=== PATIENT | male | born 1960 | race Caucasian/White ===

== ENCOUNTER → 2016-06-02 | Outpatient (CLI) | payer OTHER ==
--- NOTE | 2016-06-02 16:46 | MR ---
EXAMINATION TYPE: MR brain wo/w con DATE OF EXAM: 06/02/2016 4:33 PM COMPARISON: None at this institution. HISTORY: Seizures, hx brain tumor removed 2001 TECHNIQUE: Multiplanar, multisequence images of the brain and brainstem is performed without and with IV contras t, utilizing 20 mL intravenous MultiHance . FINDINGS: Diffusion weighted images area of increased signal on diffusion-weighted images without low signal on ADC mapping that correlates with area isointense to CSF near the left frontal temporal par ietal junction laterally near axial image 19. Suspect focal area of encephalomalacia related to prior surgery, I cannot explain increased signal on diffusion-weighted images at this level. There is no w orrisome extra-axial fluid collection or significant white matter signal abnormality. Occasional foc us of T2 hyperintensity seen scattered throughout the white matter bilaterally. Approximately 5-8 sca ttered lesions are present. The ventricular system and cisternal spaces are normal in size and appear ance. The brain volume is age appropriate. Midline structures demonstrate normal morphology. The craniocervical junction appears within normal limits. Post contrast images demonstrate no abnormal enhancement with particular attention to the le ft frontal temporal parietal junction at area of increased signal on diffusion-weighted images. There is artifact from high left frontal parietal craniotomy near axial image 27 noted. The dural venous s inuses appear patent. The visualized sinuses are clear and the globes are intact. IMPRESSION: Abnormal area near left frontal temporal parietal junction is felt to reflect location of prior tumor resection. Correlation with old outside CT or MRI would be beneficial to confirm. Reason for increased signal on diffusion-weighted images is of uncertain certainty near this level. No dimi nished ADC to suggest acute infarct. No suspicious enhancement or edema to suggest subacute infarct i s felt present. Postsurgical change superior to this is noted.
== END | disposition home or self-care (01) ==
LOC: RADMRIMAIN 15:34
PROVIDERS: ATTEND Family Medicine
DX: R93.0 Abnormal findings on diagnostic imaging of skull and head, not elsewhere classified (principal); G40.909 Epilepsy, unspecified, not intractable, without status epilepticus; Z98.890 Other specified postprocedural states
CPT/HCPCS: 70553; A9577

== ENCOUNTER → 2020-09-24 | Outpatient (CLI) | payer OTHER ==
[2020-09-24 20:18] LABS: African American GFR (CKD) 95.7 (60.0-200.0); Albumin 4.4 g/dL (3.80-4.90); Albumin/Globulin Ratio 1.52 (1.60-3.17); Anion Gap 9.7 mmol/L (4.00-12.00); Calcium 9.5 mg/dL (8.7-10.3); Carbon Dioxide 26.3 mmol/L (21.6-31.8); Chol/HDL Ratio 6.59; Globulin 2.9 g/dL (1.6-3.3); LDL Cholesterol,Calculated 113.6 mg/dL (0.0-131.0); Non-African American GFR(CKD) 82.6 (60.0-200.0); Potassium 4.5 mmol/L (3.5-5.5); Total Bilirubin 0.7 mg/dL (0.2-1.2); Total Protein 7.3 g/dL (6.2-8.2); VLDL Calculation 65.4 mg/dL (5.00-40.00)
== END | disposition home or self-care (01) ==
LOC: EDSEX → LABWHC1 13:39 → MERGE 13:39
PROVIDERS: ATTEND Internal Medicine Interventional Cardiology
DX: E78.2 Mixed hyperlipidemia (principal)
CPT/HCPCS: 36415; 80053; 80061

== ENCOUNTER 2020-10-02 05:50 | Day surgery (SDC) | payer OTHER ==
[2020-09-27 16:50] VITALS: BMI 36.6
[2020-10-02] MEDS ORDERED: HEPARIN SODIUM,PORCINE 2,500 UNIT in SODIUM CHLORIDE 0.9% 250 ML IRRIGATION PRN (05:58)
[2020-10-02] MEDS ORDERED: HEPARIN SODIUM,PORCINE 10,000 UNIT in SODIUM CHLORIDE 0.9% 1,000 ML IRRIGATION PRN (05:58)
[2020-10-02] MEDS ORDERED: ALPRAZolam 0.5 MG TAB PO PRN (05:58)
[2020-10-02] MEDS ORDERED: NITROGLYCERIN SL TABS 0.4 MG TAB SUBLINGUAL PRN ×2 (05:58→09:15)
[2020-10-02] MEDS ORDERED: SODIUM CHLORIDE 0.9% 1,000 ML in EMPTY BAG 1 BAG IV ONE (05:58)
[2020-10-02] MEDS ORDERED: ALPRAZolam 0.25 MG TAB PO PRN (05:58)
[2020-10-02] MEDS ORDERED: ASPIRIN 325 MG TAB PO STA (05:58)
[2020-10-02 06:32] LABS: Glucose,Whole Blood 132 mg/dL (75-99)
[2020-10-02 06:35] LABS: Basophils # (A) 0.1 k/uL (0-0.2); Basophils % (A) 1 %; Eosinophils # (A) 0.2 k/uL (0-0.7); Eosinophils % (A) 2 %; HCT 50.4 % (39.0-53.0); HGB 16.8 gm/dL (13.0-17.5); Lymphocytes # (A) 3.9 k/uL (1.0-4.8); Lymphocytes % (A) 41 %; MCH 31.6 pg (25.0-35.0); MCHC 33.4 g/dL (31.0-37.0); MCV 94.7 fL (80.0-100.0); Mean Platelet Volume 7.4; Monocytes # (A) 0.7 k/uL (0-1.0); Monocytes % (A) 8 %; Neutrophils # (A) 4.2 k/uL (1.3-7.7); Neutrophils % (A) 45 %; Platelet Count 265 k/uL (150-450); RBC 5.32 m/uL (4.30-5.90); WBC 9.3 k/uL (3.8-10.6)
[2020-10-02] MEDS ORDERED: LIDOCAINE 1% INJ 10MG/ML (20 ML MDV) ONE (07:12)
[2020-10-02] MEDS ORDERED: fentaNYL (PF) 50 MCG/ML 2 ML AMP ONE (07:12)
[2020-10-02] MEDS ORDERED: HEPARIN SODIUM 1,000 UN/ML (10ML VL) ONE (07:12)
[2020-10-02] MEDS ORDERED: VERAPAMIL 2.5 MG/ML 2 ML AMP ONE (07:12)
[2020-10-02] MEDS ORDERED: fentaNYL (PF) 50 MCG/ML 2 ML AMP IV ONE (07:55)
[2020-10-02] MEDS ORDERED: MIDAZOLAM 2 MG/2 ML VIAL IV ONE (08:01)
[2020-10-02] MEDS ORDERED: LIDOCAINE 1% INJ 10MG/ML (20 ML MDV) SQ ONE (08:03)
[2020-10-02] MEDS ORDERED: VERAPAMIL SYRINGE (5 MG/10 ML) INTRAARTER ONE (08:08)
[2020-10-02] MEDS ORDERED: HEPARIN SODIUM 1,000 UN/ML (10ML VL) IV ONE (08:11)
[2020-10-02] MEDS ORDERED: CLOPIDOGREL 75 MG TAB ONE (08:17)
[2020-10-02] MEDS ORDERED: CLOPIDOGREL 75 MG TAB PO ONE (08:21)
[2020-10-02] MEDS ORDERED: IOPAMIDOL-370 125ML BTL INJ ONE (08:32)
[2020-10-02] MEDS ORDERED: NITROGLYCERIN 1000MCG/10ML SYRINGE INTRACORON ONE (08:39)
[2020-10-02] MEDS ORDERED: IOPAMIDOL-370 100ML BTL INJ ONE (09:00)
[2020-10-02] MEDS ORDERED: MAG HYDROX/AL HYDROX/SIMETH 30 ML CUP PO PRN (09:15)
[2020-10-02] MEDS ORDERED: SODIUM CHLORIDE 0.9% 1,000 ML IV SCH (09:15)
[2020-10-02] MEDS ORDERED: ATROPINE SULFATE 0.1 MG/ML 10ML SYRINGE IV PRN (09:15)
[2020-10-02] MEDS ORDERED: ZOLPIDEM 5 MG TAB PO PRN (09:15)
[2020-10-02] MEDS ORDERED: RX INFO: IV CONTRAST WAS GIVEN 1 EACH MISC MISCELLANE PRN (09:15)
--- NOTE | 2020-10-02 09:30 | CC ---
CARDIAC CATHETERIZATION REPORT Mr. Mulligan is a 59-year-old male with known history of diabetes, hypertension, chronic tobacco use, who has been complaining of progressive symptoms of exertional chest discomfort and dyspnea on exertion. In view of that, recommendation was made regarding cardiac catheterization. The procedure as well as the risks and the complications were discussed with the patient who is in full understanding and agreement. PROCEDURE DETAILS: Patient was brought to the laborer fryer farm in a fasting semisedated state, after receiving fentanyl and Benadryl and achieving moderate conscious sedated state. Using Xylocaine anesthesia and Seldinger technique, a 6-Chinese sheath was introduced in the right radial artery. Selective right and left coronary angiography were performed using 5- Chinese 3.5 bend right and left Christa catheter. Multiple views of the coronary arteries including hemiaxial views were obtained. The right Christa catheter was used to cross the aortic valve. Images of the coronary arteries were obtained. Left ventricle end-diastolic pressure was calculated. Following that, catheter was removed, images were reviewed. FINDINGS: LEFT MAIN: This is a short size vessel, bifurcating into left circumflex, left anterior descending artery, left main coronary artery has no evidence of high-grade stenosis. LEFT ANTERIOR DESCENDING ARTERY: This is a large-sized vessel reaching to the apex, giving rise to a large 1st diagonal branch. The diagonal branch has a 99% stenosis. The LAD proximally has 20% to 30% plaque. After the takeoff of the first septal psych nurse, there is a tubular lesion of about 50% to 60%. The rest of the vessel has no high-grade stenosis. LEFT CIRCUMFLEX: This is a nondominant vessel, large in caliber giving rise to 2 obtuse marginal branches. The first one is very proximal. The left circumflex has mild intimal disease of 20% to 30% without any evidence of high-grade stenosis. RIGHT CORONARY ARTERY: This is a large dominant vessel bifurcating distally into PDA and posterolateral segment and branches. The proximal segment of the RCA has about 60 to 70% plaque. The mid segment at the takeoff of the acute marginal, has a complex lesion of about 99% stenosis. The rest of the vessel has no high-grade stenosis. LEFT VENTRICULOGRAM: Left ventriculogram was not performed. HEMODYNAMICS: There was no gradient across the aortic valve. The left ventricular end-diastolic pressure was 14-18 mmHg. CONCLUSION: 1. Critical stenosis involving the mid right coronary artery and the proximal right coronary artery. 2. Significant stenosis in the first diagonal branch and moderate significant disease in the mid LAD. 3. Mild disease in the left circumflex. RECOMMENDATIONS: In view of findings and anatomy, I recommend proceeding with angioplasty and stenting of the right coronary artery. The procedure as well as the risks and the complications were discussed with the patient who is in full understanding and agreement. MMODL / IJN: [id number] /
--- NOTE | 2020-10-02 09:34 | PTCA ---
PERCUTANEOUSTRANS CORORONARY ANGIOGRAPHY Mr. Mulligan is a 59-year-old male with history of diabetes, chronic tobacco use, hypertension, who presented with symptoms of progressive chest discomfort, underwent cardiac catheterization and was found to have critical stenosis involving the mid right coronary artery and the proximal right coronary artery. In view of that, recommendation was made regarding angioplasty and stenting. The procedure, its risks and complications were discussed with the patient who is in full understanding and agreement. PROCEDURE: A 6-Kazakh FR4 guiding catheter was introduced into the system. After cannulating the ostium of the right coronary artery, a 0.014 balanced medium weight J-wire was advanced and positioned in the acute marginal branch. Subsequently another 0.014 balanced medium weight J-wire with the help of a straight Super cross microcatheter was used to cross the critical stenosis in the mid right coronary artery and position in the PDA. Subsequently, the microcatheter was removed and a 2.5 x 12 mm NC Trek balloon was advanced and multiple inflations at a maximum of 8 atmospheres were done. Following that, the balloon was removed and a 3.5 x 33 mm Xience Jose point was advanced, deployed and was dilated at 16 atmospheres. Following that, the balloon was removed and a 4.0 x 15 mm Xience Jose Point stent was advanced in the proximal lesion and deployed and dilated at 16 atmospheres. Following that, the balloon was removed and a 3.75 x 15 mm NC Trek balloon was advanced and multiple inflations in the distal stent were done at maximum of 10 atmospheres. After the last inflation, after appropriate wait, the balloon and the guidewire were withdrawn back in the guiding catheter. Images were obtained and repeated. Those images reveal stable successful stenting. At that point, the guiding catheter, the balloon and the guidewire were removed. The sheath was removed. Hemostasis was obtained with deployment of a TR band. There was no immediate complication. Patient is returned to his room in stable condition. Of note, the patient had received 8000 units of intravenous heparin as well as intra-arterial verapamil. He received a loading dose of clopidogrel. He had no significant chest discomfort with the inflations. RESULTS: 1. Successful stenting of the mid right coronary artery with reduction of stenosis from 99% to 0%. 2. Successful stenting of the proximal right coronary artery with reduction of stenosis from 70% to 0%. RECOMMENDATIONS: Patient will be continued on aspirin, Plavix, beta wen, JHOAN inhibitor and statin. The importance of dual antiplatelet treatment were discussed with the patient and his family and they are in full understanding and agreement. He will be admitted at a later time to undergo staged angioplasty and stenting of his diagonal branch and reevaluate his LAD. Duration of sedation: 60 minutes. GIORGI / ABELN: [id number] /
[2020-10-02 11:44] LABS: Glucose,Whole Blood 148 mg/dL (75-99)
[2020-10-02 17:42] LABS: Glucose,Whole Blood 136 mg/dL (75-99)
[2020-10-02 20:56] LABS: Glucose,Whole Blood 97 mg/dL (75-99)
[2020-10-02] MEDS ORDERED: ATORVASTATIN 80 MG TAB PO SCH (21:00)
[2020-10-03 01:56] VITALS: RESP 16
[2020-10-03 06:21] LABS: African American GFR (CKD) >90 (>60 ml/min/1.73 sqM); Anion Gap 7 mmol/L; Blood Urea Nitrogen 17 mg/dL (9-20); Calcium 9.2 mg/dL (8.4-10.2); Carbon Dioxide 26 mmol/L (22-30); Chloride 104 mmol/L (98-107); Glucose 104 mg/dL (74-99); Non-African American GFR(CKD) 89 (>60 ml/min/1.73 sqM); Potassium 4.1 mmol/L (3.5-5.1); Sodium 137 mmol/L (137-145)
[2020-10-03 07:05] LABS: Glucose,Whole Blood 115 mg/dL (75-99)
[2020-10-03 07:35] VITALS: BP 160/96; PULSE 64; TEMP 98.2
[2020-10-03] MEDS ORDERED: ISOSORBIDE MONONITRATE ER 30 MG TAB.ER.24H PO SCH (09:00)
[2020-10-03] MEDS ORDERED: ASPIRIN 81 MG PO SCH (09:00)
[2020-10-03] MEDS ORDERED: lisinopriL 10 MG TAB PO SCH (09:00)
[2020-10-03] MEDS ORDERED: CITALOPRAM HYDROBROMIDE 20 MG TAB PO SCH (09:00)
[2020-10-03] MEDS ORDERED: CLOPIDOGREL 75 MG TAB PO SCH (09:00)
--- NOTE | 2020-10-03 10:57 | PN ---
PROGRESS NOTE Mr. Mulligan is a 59-year-old male known history of hypertension, diabetes mellitus, chronic tobacco use, who presented with symptoms of chest discomfort, underwent cardiac catheterization and was found to have significant obstructive disease involving the right coronary artery as well as the diagonal branch. He underwent stenting of the right coronary artery yesterday. He is doing well this morning. His breathing is stable. He denies any chest pain. No dizziness. No palpitation. No nausea. He continued on aspirin once a day, Lipitor 80 mg daily, citalopram, Plavix 75 mg daily, isosorbide mononitrate 30 mg daily, lisinopril 10 mg daily. PHYSICAL EXAMINATION: Blood pressure running in the 130s to 160s with a heart rate 60. LUNGS: Clear. HEART: Regular rhythm S1, S2. No S3. No rub. ABDOMEN: Soft nontender. EXTREMITIES: No edema, right radial pulse intact. LAB DATA: Lab data revealed BUN and creatinine 17 and 0.94, potassium 4.1. His EKG revealed no acute changes. IMPRESSION: 1. Status post stenting of the right coronary artery. 2. Obstructive disease in the diagonal branch. 3. Hypertension. 4. Hyperlipidemia. 5. Diabetes mellitus. RECOMMENDATION: Patient should be able to be discharged home today. He will resume his metformin in 48 hours. He will be evaluated next week and if stable, he will be re- admitted to the hospital in 2 weeks to undergo percutaneous revascularization of his diagonal branch. MMODL / ABELN: [id number] /
== END 2020-10-03 09:29 | disposition home or self-care (01) ==
LOC: EDSEX → CATHCVL 05:50 → MERGE 07:30 → 6NMEDSUR 11:04 → CATHCVL 10-03 09:29
PROVIDERS: ATTEND Internal Medicine Interventional Cardiology
DX: I25.10 Atherosclerotic heart disease of native coronary artery without angina pectoris (principal); E11.9 Type 2 diabetes mellitus without complications; E78.5 Hyperlipidemia, unspecified; I10 Essential (primary) hypertension; F17.200 Nicotine dependence, unspecified, uncomplicated
CPT/HCPCS: 93458; 85025; J2250; J2001; J3010; J1644; Q9967 ×2; 80048

== ENCOUNTER 2020-10-23 06:31 | Day surgery (SDC) | payer OTHER ==
[~2020-10-23 06:31] MED LIST: ALPRAZolam 0.25 MG TAB PO PRN; ALPRAZolam 0.5 MG TAB PO PRN; NITROGLYCERIN SL TABS 0.4 MG TAB SUBLINGUAL PRN; SODIUM CHLORIDE 0.9% 1,000 ML in EMPTY BAG 1 BAG IV ONE
[2020-10-23] MEDS ORDERED: SODIUM CHLORIDE 0.9% 1,000 ML IV ONE (06:55)
[2020-10-23] MEDS ORDERED: ASPIRIN 325 MG TAB PO ONE (07:00)
[2020-10-23] MEDS ORDERED: HEPARIN SODIUM,PORCINE 2,500 UNIT in SODIUM CHLORIDE 0.9% 250 ML IRRIGATION PRN (07:00)
[2020-10-23] MEDS ORDERED: ATORVASTATIN 80 MG TAB PO ONE (07:00)
[2020-10-23] MEDS ORDERED: HEPARIN SODIUM,PORCINE 10,000 UNIT in SODIUM CHLORIDE 0.9% 1,000 ML IRRIGATION PRN (07:00)
[2020-10-23 07:09] LABS: Glucose,Whole Blood 177 mg/dL (75-99)
[2020-10-23] MEDS ORDERED: LIDOCAINE 1% INJ 10MG/ML (20 ML MDV) ONE (07:21)
[2020-10-23] MEDS ORDERED: VERAPAMIL 2.5 MG/ML 2 ML AMP ONE (07:21)
[2020-10-23] MEDS ORDERED: HEPARIN SODIUM 1,000 UN/ML (10ML VL) ONE (07:30)
[2020-10-23] MEDS ORDERED: fentaNYL (PF) 50 MCG/ML 2 ML AMP ONE (07:30)
[2020-10-23] MEDS ORDERED: fentaNYL (PF) 50 MCG/ML 2 ML AMP IV ONE (07:43)
[2020-10-23] MEDS ORDERED: LIDOCAINE 1% INJ 10MG/ML (20 ML MDV) SQ ONE (07:44)
[2020-10-23] MEDS ORDERED: MIDAZOLAM 2 MG/2 ML VIAL IV ONE (07:45)
[2020-10-23] MEDS ORDERED: VERAPAMIL SYRINGE (5 MG/10 ML) INTRAARTER ONE (07:49)
[2020-10-23] MEDS: HEPARIN SODIUM 1,000 UN/ML (10ML VL) IV ONE ×2 (07:54→08:52)
[2020-10-23] MEDS ORDERED: IOPAMIDOL-370 125ML BTL INJ ONE (08:12)
[2020-10-23] MEDS ORDERED: IOPAMIDOL-370 100ML BTL INJ ONE (08:45)
[2020-10-23] MEDS ORDERED: RX INFO: IV CONTRAST WAS GIVEN 1 EACH MISC MISCELLANE PRN (09:02)
[2020-10-23] MEDS ORDERED: ATROPINE SULFATE 0.1 MG/ML 10ML SYRINGE IV PRN (09:02)
[2020-10-23] MEDS ORDERED: NITROGLYCERIN SL TABS 0.4 MG TAB SUBLINGUAL PRN (09:02)
[2020-10-23] MEDS ORDERED: ZOLPIDEM 5 MG TAB PO PRN (09:02)
[2020-10-23] MEDS ORDERED: MAG HYDROX/AL HYDROX/SIMETH 30 ML CUP PO PRN (09:02)
[2020-10-23] MEDS ORDERED: SODIUM CHLORIDE 0.9% 1,000 ML IV SCH (09:15)
--- NOTE | 2020-10-23 10:23 | CC ---
CARDIAC CATHETERIZATION REPORT Mr. Mulligan is a 59-year-old male who has been complaining of episodes of chest discomfort, underwent cardiac catheterization earlier this month and was found to have critical stenosis in the right coronary artery, the diagonal branch and borderline significant lesion in the mid LAD. He underwent stenting of the right coronary artery and has been complaining of some symptoms of discomfort and dyspnea. He was brought in today to further evaluate his left coronary anatomy. The procedure as well as its risks and complications were discussed with the patient, who was in full understanding and agreement. PROCEDURE DESCRIPTION: Patient was brought to the slab off mill tender in a fasting, semi-sedated state. After receiving fentanyl and Benadryl and achieving a moderate conscious sedated state, using Xylocaine anesthesia and Seldinger technique, a 6-Albanian sheath was introduced in the left radial artery. A 6-Albanian 4 bend right Christa catheter was introduced into the system. Images of the right coronary were performed. Following that, a 6-Albanian EBU 3.75 guiding catheter was introduced into the system. After cannulating the left main, a Doppler flow wire was introduced into the LAD and positioned distally. IFR was measured in the LAD at 0.82. At that point, a BMW J-wire was advanced and positioned in the distal diagonal branch. Subsequently a 2.5 x 12 mm NC Trek balloon was advanced, and inflations in the LAD and diagonal branch were performed. Following that, the balloon was removed and a 3.0 x 18 mm Xience Sk[place]oint stent was advanced into the diagonal branch, deployed and post-dilated at 16 atmospheres. Following that the balloon was removed and a 3.0 x 28 mm Xience Skypoint stent was advanced into the LAD, deployed and post-dilated at 16 atmospheres. After removing the balloon, a 3.25 x 8 mm NC Trek balloon was advanced, and one inflation in the proximal segment of the stent at 12 atmospheres was done. After the last inflation, after appropriate wait, the balloon and the guidewire were withdrawn back into the guiding catheter. Images were obtained and repeated. Those images revealed stable successful stenting. At that point, the guiding catheter and the guidewire were removed. The sheath was removed. Hemostasis was obtained with deployment of a TR band. There was no immediate complication. The patient was returned to his room in stable condition. Of note, the patient received a total of 9000 units of intravenous heparin. His ACT was followed and he received an oral loading dose of clopidogrel. FINDINGS: RIGHT CORONARY ARTERY: This is a dominant vessel that has no evidence of in-stent restenosis. LEFT MAIN: This is a short-sized vessel with no evidence of high-grade stenosis. LEFT CIRCUMFLEX: This is a nondominant vessel giving rise to a large first obtuse marginal branch. The left circumflex obtuse marginal branch has a 50% plaque proximally. The rest of the vessel has no high-grade stenosis. Successful stenting of the first diagonal branch with reduction of stenosis from 95% to 0%. Positive IFR of the mid LAD at 0.82 and successful stenting of that vessel with reduction of stenosis from 60-70% to 0%. RECOMMENDATIONS: Patient will be continued on aspirin, Plavix, beta blockers, JHOAN inhibitor and statin. The importance of dual antiplatelet treatment was discussed with the patient and his family, and they are in full understanding and agreement. Duration of sedation was 62 minutes. MMREBEKAH / ABELN: [id number] /
[2020-10-23 12:20] LABS: Glucose,Whole Blood 180 mg/dL (75-99)
[2020-10-23] MEDS: INSULIN ASPART (NovoLOG) 100 UNIT/ML VIAL SQ SCH ×3 (13:54→20:52)
[2020-10-23 14:46] VITALS: BMI 38.4
[2020-10-23] MEDS ORDERED: INSULIN ASPART (NovoLOG) 100 UNIT/ML VIAL SQ SCH (17:30)
[2020-10-23 17:50] LABS: Glucose,Whole Blood 187 mg/dL (75-99)
[2020-10-23 20:06] VITALS: PULSE 67
[2020-10-23 20:09] VITALS: RESP 18
[2020-10-23 20:51] LABS: Glucose,Whole Blood 118 mg/dL (75-99)
[2020-10-23] MEDS ORDERED: ATORVASTATIN 80 MG TAB PO SCH (21:00)
[2020-10-23] MEDS: lisinopriL 10 MG TAB PO SCH (21:15)
[2020-10-24 02:37] VITALS: BP 97/52; TEMP 98.4
[2020-10-24 05:31] LABS: African American GFR (CKD) >90 (>60 ml/min/1.73 sqM); Anion Gap 7 mmol/L; Blood Urea Nitrogen 16 mg/dL (9-20); Calcium 9.1 mg/dL (8.4-10.2); Carbon Dioxide 28 mmol/L (22-30); Chloride 101 mmol/L (98-107); Glucose 134 mg/dL (74-99); Non-African American GFR(CKD) 89 (>60 ml/min/1.73 sqM); Potassium 3.9 mmol/L (3.5-5.1); Sodium 136 mmol/L (137-145)
[2020-10-24 07:59] LABS: Glucose,Whole Blood 154 mg/dL (75-99)
[2020-10-24] MEDS: lisinopriL 10 MG TAB PO SCH (08:04)
[2020-10-24] MEDS: INSULIN ASPART (NovoLOG) 100 UNIT/ML VIAL SQ SCH (08:05)
[2020-10-24] MEDS ORDERED: CLOPIDOGREL 75 MG TAB PO SCH (09:00)
[2020-10-24] MEDS ORDERED: CITALOPRAM HYDROBROMIDE 20 MG TAB PO SCH (09:00)
[2020-10-24] MEDS ORDERED: FLUTICASONE 50MCG/SPRAY NASAL 16GM NASAL SCH (09:00)
[2020-10-24] MEDS ORDERED: ISOSORBIDE MONONITRATE ER 30 MG TAB.ER.24H PO SCH (09:00)
[2020-10-24] MEDS ORDERED: hydroCHLOROthiazide 25 MG TAB PO SCH (09:00)
[2020-10-24] MEDS ORDERED: ASPIRIN 81 MG PO SCH (09:00)
--- NOTE | 2020-10-24 10:00 | PN ---
PROGRESS NOTE Mr. Mulligan is a 59-year-old male with known history of diabetes, hypertension and hyperlipidemia who recently presented with symptoms of angina pectoris, underwent cardiac catheterization and was found to have critical stenosis in the right coronary artery. He underwent stenting of that vessel and at the same time was found to have obstructive disease in the LAD and diagonal branch. He underwent IFR measurement of the LAD that was significant. He underwent stenting of the LAD and the diagonal branch. He is feeling well this morning. His breathing is stable. He is denying any chest pain. No dizziness or palpitations. Denies any nausea. He is ambulating without difficulty. He continues to be in sinus mechanism. He is on aspirin once a day, Lipitor 80 mg daily, Plavix 75 mg daily, citalopram 20 mg daily, hydrochlorothiazide 25 mg daily, isosorbide mononitrate 30 mg daily, lisinopril 10 mg twice a day. PHYSICAL EXAMINATION: Blood pressure is 101/50 with a heart rate in the 60s. LUNGS: Clear. HEART: Regular rate and rhythm. S1, S2. No S3. No rub. ABDOMEN: Soft, nontender, obese. EXTREMITIES: No edema. Right radial pulse intact. LAB DATA: Lab data revealed BUN and creatinine of 16 and 0.94, potassium is 3.9. IMPRESSION: 1. Status post stenting of the LAD and diagonal branch. 2. History of hypertension. 3. Hyperlipidemia. 4. Diabetes mellitus. RECOMMENDATIONS: Patient will be discharged home today and followed as an outpatient. MMODL / ANGLE: [id number] /
== END 2020-10-24 08:47 | disposition home or self-care (01) ==
LOC: CATHCVL 06:31 → 6NMEDSUR 10:18 → CATHCVL 10-24 08:47
PROVIDERS: ATTEND Internal Medicine Interventional Cardiology
DX: I25.10 Atherosclerotic heart disease of native coronary artery without angina pectoris (principal); E11.9 Type 2 diabetes mellitus without complications; I10 Essential (primary) hypertension; Z82.49 Family history of ischemic heart disease and other diseases of the circulatory system; F17.210 Nicotine dependence, cigarettes, uncomplicated; Z79.82 Long term (current) use of aspirin; Z79.899 Other long term (current) drug therapy; G40.909 Epilepsy, unspecified, not intractable, without status epilepticus
CPT/HCPCS: 93571; 93454; 80048; C9600; C9601; C1769 ×2; C1887; C1894; C1725 ×2; C1874 ×2; J2250; J2001; J3010; J1644; Q9967 ×2

== ENCOUNTER 2020-12-17 22:56 | Observation (INO) | payer OTHER ==
[2020-12-17] MEDS ORDERED: DILTIAZEM DRIP BOLUS FROM BAG 1 MG SOLN IV ONE (23:20)
[2020-12-17] MEDS ORDERED: ASPIRIN 81 MG PO STA (23:20)
--- NOTE | 2020-12-17 23:28 | ED ---
Arrhythmia/Palpitations HPI - General Chief Complaint: Arrhythmia/Palpitations Stated Complaint: Chest Pains, High Heart Rate Time Seen by Provider: 12/17/20 23:06 Source: patient Mode of arrival: wheelchair - History of Present Illness Initial Comments: This patient is 59-year-old man who did recently have stents placed for acute coronary syndrome (September 2020), who presents with onset of dyspnea tonight which brought to his attention that his heart rate was up in the 160s to 70s. Patient also is noting some chest pressure. His partner persuaded him to come emergency department. 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 Complaint: rapid heart beat -: hour(s) Context: occurred during rest Associated Symptoms: chest pain, shortness of breath, near-syncope - Related Data Home Medications Medication Instructions Recorded Confirmed Citalopram Hydrobromide 20 mg PO DAILY 09/27/20 12/18/20 [Citalopram HBr] Diphenoxylate HCl/Atropine 1 tab PO 5XD PRN 09/27/20 12/18/20 [Lomotil 2.5-0.025 mg Tablet] Fluticasone Nasal [place] [Flonase 1 spray NASAL DAILY PRN 09/27/20 12/18/20 Nasal [place]] Nitroglycerin Sl Tabs [Nitrostat] 0.4 mg SUBLINGUAL Q5M PRN 09/27/20 12/18/20 diazePAM [Diazepam] 10 mg PO Q8H PRN 09/27/20 12/18/20 metFORMIN HCL 500 mg PO BID 09/27/20 12/18/20 Albuterol Sulfate [Proair Hfa] 2 puff INHALATION RT-Q4H PRN 12/18/20 12/18/20 Previous Rx's Medication Instructions Recorded Atorvastatin [Lipitor] 80 mg PO HS #90 tab 10/03/20 Clopidogrel [Plavix] 75 mg PO DAILY #90 tab 10/03/20 lisinopriL 10 mg PO BID #180 tab 10/03/20 Apixaban [Eliquis] 5 mg PO BID 30 Days #60 tab 12/18/20 Metoprolol Tartrate 25 mg PO BID #180 tab 12/19/20 Allergies Allergy/AdvReac Type Severity Reaction Status Date / Time divalproex sodium AdvReac Unknown Verified 12/18/20 06:57 [From Depakote] Review of Systems ROS Statement: Those systems with pertinent positive or pertinent negative responses have been documented in the HPI. ROS Other: All systems not noted in ROS Statement are negative. Constitutional: Denies: fever Respiratory: Reports: dyspnea. Denies: cough, wheezes, hemoptysis Cardiovascular: Reports: chest pain, palpitations. Denies: orthopnea, edema, syncope Gastrointestinal: Denies: abdominal pain, vomiting, diarrhea Genitourinary: Denies: dysuria, hematuria Musculoskeletal: Denies: back pain Skin: Denies: rash Neurological: Denies: headache, weakness, numbness Past Medical History Past Medical History: Atrial Fibrillation, Coronary Artery Disease (CAD), Chest Pain / Angina, COPD, Diabetes Mellitus, Hyperlipidemia, Hypertension, Seizure Disorder Additional Past Medical History / Comment(s): last seziure > 1 yr ago, History of Any Multi-Drug Resistant Organisms: None Reported Past Surgical History: Heart Catheterization With Stent Additional Past Surgical History / Comment(s): 2 cardiac stents, surgery to remove brain tumor, Past Anesthesia/Blood Transfusion Reactions: No Reported Reaction Date of Last Stent Placement:: 10/02/20 Past Psychological History: No Psychological Hx Reported Smoking Status: Current every day smoker Past Alcohol Use History: None Reported Past Drug Use History: None Reported - Past Family History Father Family Medical History: Cancer Mother Family Medical History: Deep Vein Thrombosis (DVT) General Exam General appearance: alert, in no apparent distress Head exam: Present: atraumatic, normocephalic Eye exam: Present: normal appearance. Absent: scleral icterus, conjunctival injection Respiratory exam: Present: normal lung sounds bilaterally. Absent: respiratory distress, wheezes, rales, rhonchi, stridor Cardiovascular Exam: Present: tachycardia, irregular rhythm, normal heart sounds. Absent: systolic murmur, diastolic murmur, rubs, gallop GI/Abdominal exam: Present: soft. Absent: distended, tenderness, guarding, rebound, rigid, mass Extremities exam: Present: normal inspection, normal capillary refill. Absent: pedal edema, calf tenderness Back exam: Present: normal inspection. Absent: CVA tenderness (R), CVA tenderness (L) Neurological exam: Present: alert Skin exam: Present: warm, dry, intact, normal color. Absent: rash Course Vital Signs 12/17/20 12/17/20 12/18/20 22:59 23:55 00:47 Temperature 97.2 F L Pulse Rate 80 167 H 142 H Pulse Rate [ Pulse Oximetery ] Respiratory 19 18 16 Rate Blood Pressure 130/69 97/77 102/70 Blood Pressure [Right Arm] O2 Sat by Pulse 98 98 94 L Oximetry 12/18/20 12/18/20 12/18/20 02:12 03:14 07:37 Temperature 97.5 F L Pulse Rate 76 72 Pulse Rate [ 75 Pulse Oximetery ] Respiratory 18 18 18 Rate Blood Pressure 112/69 123/83 Blood Pressure 121/93 [Right Arm] O2 Sat by Pulse 94 L 96 96 Oximetry EKG Findings - EKG Results: EKG: interpreted by ERMD, normal axis, normal QRS EKG shows: tachycardia (Rate 164 bpm), atrial fibrillation - Blocks, [place], Hypertrophy, ST Abn: Repolarization changes or abnormalities: nonspecific abnormality, ST segment, and/or T wave Medical Decision Making - Lab Data Result diagrams: 12/19/20 06:17 12/19/20 06:17 Lab Results 12/17/20 12/17/20 12/17/20 Range/Units 23:23 23:23 23:23 WBC 13.0 H (3.8-10.6) k/uL RBC 5.42 (4.30-5.90) m/uL Hgb 17.1 (13.0-17.5) gm/dL Hct 50.1 (39.0-53.0) % MCV 92.4 (80.0-100.0) fL MCH 31.5 (25.0-35.0) pg MCHC 34.1 (31.0-37.0) g/dL RDW 12.6 (11.5-15.5) % Plt Count 224 (150-450) k/uL MPV 7.5 Neutrophils % 72 % Lymphocytes % 19 % Monocytes % 5 % Eosinophils % 2 % Basophils % 1 % Neutrophils # 9.4 H (1.3-7.7) k/uL Lymphocytes # 2.4 (1.0-4.8) k/uL Monocytes # 0.7 (0-1.0) k/uL Eosinophils # 0.2 (0-0.7) k/uL Basophils # 0.1 (0-0.2) k/uL PT 9.9 (9.0-12.0) sec INR 0.9 (<1.2) APTT 21.9 L (22.0-30.0) sec Sodium 134 L (137-145) mmol/L Potassium 4.3 (3.5-5.1) mmol/L Chloride 101 (98-107) mmol/L Carbon Dioxide 17 L (22-30) mmol/L Anion Gap 16 mmol/L BUN 23 H (9-20) mg/dL Creatinine 0.91 (0.66-1.25) mg/dL Est GFR (CKD-EPI)AfAm >90 (>60 ml/min/1.73 sqM) Est GFR (CKD-EPI)NonAf >90 (>60 ml/min/1.73 sqM) Glucose 272 H (74-99) mg/dL Calcium 9.8 (8.4-10.2) mg/dL Magnesium 1.8 (1.6-2.3) mg/dL Total Bilirubin 0.8 (0.2-1.3) mg/dL AST 38 (17-59) U/L ALT 35 (4-49) U/L Alkaline Phosphatase 93 (38-126) U/L Troponin I (0.000-0.034) ng/mL Total Protein 7.7 (6.3-8.2) g/dL Albumin 4.3 (3.5-5.0) g/dL TSH 1.820 (0.465-4.680) mIU/L 12/17/ Range/Units 23:23 WBC (3.8-10.6) k/uL RBC (4.30-5.90) m/uL Hgb (13.0-17.5) gm/dL Hct (39.0-53.0) % MCV (80.0-100.0) fL MCH (25.0-35.0) pg MCHC (31.0-37.0) g/dL RDW (11.5-15.5) % Plt Count (150-450) k/uL MPV Neutrophils % % Lymphocytes % % Monocytes % % Eosinophils % % Basophils % % Neutrophils # (1.3-7.7) k/uL Lymphocytes # (1.0-4.8) k/uL Monocytes # (0-1.0) k/uL Eosinophils # (0-0.7) k/uL Basophils # (0-0.2) k/uL PT (9.0-12.0) sec INR (<1.2) APTT (22.0-30.0) sec Sodium (137-145) mmol/L Potassium (3.5-5.1) mmol/L Chloride (98-107) mmol/L Carbon Dioxide (22-30) mmol/L Anion Gap mmol/L BUN (9-20) mg/dL Creatinine (0.66-1.25) mg/dL Est GFR (CKD-EPI)AfAm (>60 ml/min/1.73 sqM) Est GFR (CKD-EPI)NonAf (>60 ml/min/1.73 sqM) Glucose (74-99) mg/dL Calcium (8.4-10.2) mg/dL Magnesium (1.6-2.3) mg/dL Total Bilirubin (0.2-1.3) mg/dL AST (17-59) U/L ALT (4-49) U/L Alkaline Phosphatase (38-126) U/L Troponin I 0.043 H* (0.000-0.034) ng/mL Total Protein (6.3-8.2) g/dL Albumin (3.5-5.0) g/dL TSH (0.465-4.680) mIU/L Disposition Clinical Impression: Atrial fibrillation with RVR Disposition: ADMITTED IP TO THIS HOSP Condition: Good Is patient prescribed a controlled substance at d/c from ED?: No
--- NOTE | 2020-12-17 23:36 | XR ---
EXAMINATION TYPE: XR chest 1V portable DATE OF EXAM: 12/17/2020 COMPARISON: NONE HISTORY: Dysrhythmia TECHNIQUE: Single view FINDINGS: Heart and mediastinum are normal. Lungs are clear. Diaphragm is normal. Bony thorax is inta ct. IMPRESSION: No cardiopulmonary disease. Normal heart.
[2020-12-17 23:38] LABS: Basophils # (A) 0.1 k/uL (0-0.2); Basophils % (A) 1 %; Eosinophils # (A) 0.2 k/uL (0-0.7); Eosinophils % (A) 2 %; HCT 50.1 % (39.0-53.0); HGB 17.1 gm/dL (13.0-17.5); Lymphocytes # (A) 2.4 k/uL (1.0-4.8); Lymphocytes % (A) 19 %; MCH 31.5 pg (25.0-35.0); MCHC 34.1 g/dL (31.0-37.0); MCV 92.4 fL (80.0-100.0); Mean Platelet Volume 7.5; Monocytes # (A) 0.7 k/uL (0-1.0); Monocytes % (A) 5 %; Neutrophils # (A) 9.4 k/uL (1.3-7.7); Neutrophils % (A) 72 %; Platelet Count 224 k/uL (150-450); RBC 5.42 m/uL (4.30-5.90); RDW 12.6 % (11.5-15.5)
[2020-12-17] MEDS: DILTIAZEM 125 MG in SODIUM CHLORIDE 0.9% 100 ML IV SCH (23:57)
[2020-12-18 00:07] LABS: INR 0.9 (<1.2); Partial Thromboplastin Time 21.9 sec (22.0-30.0); Prothrombin Time 9.9 sec (9.0-12.0)
[2020-12-18] MEDS ORDERED: DILTIAZEM DRIP BOLUS FROM BAG 1 MG SOLN IV ONE ×2 (00:47→17:41)
[2020-12-18 01:25] LABS: ALT 35 U/L (4-49); AST 38 U/L (17-59); African American GFR (CKD) >90 (>60 ml/min/1.73 sqM); Albumin 4.3 g/dL (3.5-5.0); Alkaline Phosphatase 93 U/L (38-126); Anion Gap 16 mmol/L; Blood Urea Nitrogen 23 mg/dL (9-20); Calcium 9.8 mg/dL (8.4-10.2); Carbon Dioxide 17 mmol/L (22-30); Chloride 101 mmol/L (98-107); Glucose 272 mg/dL (74-99); Magnesium 1.8 mg/dL (1.6-2.3); Non-African American GFR(CKD) >90 (>60 ml/min/1.73 sqM); Potassium 4.3 mmol/L (3.5-5.1); Sodium 134 mmol/L (137-145); Total Bilirubin 0.8 mg/dL (0.2-1.3); Total Protein 7.7 g/dL (6.3-8.2)
[2020-12-18] MEDS ORDERED: INSULIN REGULAR 100 UNIT/ML VIAL (IV) SQ STA (01:30)
[2020-12-18] MEDS ORDERED: SODIUM CHLORIDE 0.9% 1,000 ML IV ONE ×2 (01:31→08:05)
[2020-12-18] MEDS ORDERED: NITROGLYCERIN SL TABS 0.4 MG TAB SUBLINGUAL PRN ×2 (01:43→07:17)
[2020-12-18] MEDS ORDERED: ALBUTEROL NEBULIZED 2.5 MG/3 ML INHALATION PRN (01:47)
[2020-12-18] MEDS ORDERED: diazePAM 5 MG TAB PO PRN (02:00)
[2020-12-18] MEDS ORDERED: DILTIAZEM ORAL 30 MG TAB PO STA (02:03)
[2020-12-18] MEDS ORDERED: HEPARIN SOD,PORK IN 0.45% NACL 25,000 UNIT in 0.45% NACL 1 250ML.BAG IV SCH (03:15)
[2020-12-18] MEDS ORDERED: HEPARIN SODIUM 1,000 UN/ML (10ML VL) IV ONE (03:15)
[2020-12-18] MEDS ORDERED: HEPARIN SODIUM 1,000 UN/ML (10ML VL) IV PRN (03:15)
[2020-12-18 05:57] LABS: Glucose,Whole Blood 176 mg/dL (75-99)
[2020-12-18] MEDS: INSULIN ASPART (NovoLOG) 100 UNIT/ML VIAL SQ SCH ×4 (06:04→21:55)
--- NOTE | 2020-12-18 06:28 | P.HPIM ---
History of Present Illness H&P Date: 12/18/20 Chief Complaint: SOB 59 year old male with CAD s/p stents most recent September 2020 to left circumflex, DM patient comes in with sudden onset SOB, and chest pressure 6/10 in severity , this was associated with trouble breathing, palpitations, and when he checked his vitals at home , he found his heart rate in the 160s. he waited ,but no improvement and his partner pursuaded him to come for evaluation . he denies any associated dizziness, light headedness, syncope, diaphoresis. he denies any physical activity limitations by anginal symptoms. he feels well otherwise, bejnamin es any infection like symptoms, and denies any respiratory symptoms before this episode. no recent travel or hospitalization in the ED he was found in Afib with RVR< started on heparin drip and cardizem drip, his troponins elevated and trending up. he currently converted to NSR COVID negative , CXR no acute process Review of Systems Pertinent positives as noted in HPI. All other systems were reviewed and are negative Past Medical History Past Medical History: Atrial Fibrillation, Coronary Artery Disease (CAD), Chest Pain / Angina, COPD, Diabetes Mellitus, Hyperlipidemia, Hypertension, Seizure Disorder Additional Past Medical History / Comment(s): last seziure > 1 yr ago, History of Any Multi-Drug Resistant Organisms: None Reported Past Surgical History: Heart Catheterization With Stent Additional Past Surgical History / Comment(s): 2 cardiac stents, surgery to remove brain tumor, Past Anesthesia/Blood Transfusion Reactions: No Reported Reaction Date of Last Stent Placement:: 10/02/20 Past Psychological History: No Psychological Hx Reported Smoking Status: Current every day smoker Past Alcohol Use History: None Reported Additional Past Alcohol Use History / Comment(s): smokeshalf pack a day Past Drug Use History: None Reported - Past Family History Father Family Medical History: Cancer Mother Family Medical History: Deep Vein Thrombosis (DVT) Medications and Allergies Home Medications Medication Instructions Recorded Confirmed Type Albuterol Inhaler [Ventolin Hfa 2 puff INHALATION RT-QID PRN 09/27/20 10/18/20 History Inhaler] Aspirin 81 mg PO DAILY 09/27/20 10/23/20 History Citalopram Hydrobromide 20 mg PO DAILY 09/27/20 10/23/20 History [Citalopram HBr] Diphenoxylate HCl/Atropine 1 tab PO 5XD PRN 09/27/20 10/18/20 History [Lomotil 2.5-0.025 mg Tablet] Fluticasone Nasal [place] [Flonase 1 spray NASAL DAILY 09/27/20 10/18/20 History Nasal [place]] Isosorbide Mononitrate ER [Imdur] 30 mg PO DAILY 09/27/20 10/23/20 History Nitroglycerin Sl Tabs [Nitrostat] 0.4 mg SUBLINGUAL Q5M PRN 09/27/20 10/18/20 History diazePAM [Diazepam] 10 mg PO Q8H PRN 09/27/20 10/18/20 History metFORMIN HCL 500 mg PO BID 09/27/20 10/23/20 History Atorvastatin [Lipitor] 80 mg PO HS #90 tab 10/03/20 10/23/20 Rx Clopidogrel [Plavix] 75 mg PO DAILY #90 tab 10/03/20 10/23/20 Rx lisinopriL 10 mg PO BID #180 tab 10/03/20 10/23/20 Rx hydroCHLOROthiazide [Hydrodiuril] 25 mg PO DAILY 10/18/20 10/23/20 History Allergies Allergy/AdvReac Type Severity Reaction Status Date / Time divalproex sodium AdvReac Unknown Verified 12/17/20 23:03 [From [facility]] Physical Exam Vitals: Vital Signs Temp Pulse Pulse Resp BP BP Pulse Ox 12/18/20 03:14 97.5 F L 75 18 121/93 96 12/18/20 02:12 76 18 112/69 94 L 12/18/20 00:47 142 H 16 102/70 94 L 12/17/20 23:55 167 H 18 97/77 98 12/17/20 22:59 97.2 F L 80 19 130/69 98 Intake and Output 12/17/20 12/17/20 12/18/20 14:59 22:59 06:59 Intake Total 254 Balance 254 Intake: Intake, IV Titration 14 Amount Diltiazem 125 mg In 14 Sodium Chloride 0.9% 100 ml @ 5 MG/HR 5 mls/hr IV .Q24H LEVY Rx#:[id number] Oral 240 Other: # Voids 1 Weight 122.47 kg 122.47 kg Constitutional: No acute distress, conversant, pleasant Eyes: Anicteric sclerae, moist conjunctiva, Pupils equal round reactive to light ENMT: NC/AT Oropharynx clear, no erythema, or exudates Neck: Supple, FROM, no masses, or JVD No carotid bruits No thyromegaly Lungs: Clear to auscultation Clear to percussion Normal respiratory effort, no accessory muscle use Cardiovascular: Heart regular in rate and rhythm, No murmurs, gallops, or rubs No peripheral edema Abdominal: Soft Nontender, no guarding, rebound or rigidity Abdomen moving with respiration Normoactive bowel sounds No hepatomegaly, No splenomegaly No palpable mass No abdominal wall hernia noted Skin: Normal temperature, tone, texture, turgor No induration No subcutaneous nodules No rash, lesions No ulcers Extremities: No digital cyanosis No clubbing Pedal pulses intact and symmetrical Radial pulses intact and symmetrical No calf tenderness Psychiatric: Alert and oriented to person, place and time Appropriate affect fair judgement Neuro Muscles Strength 5/5 in all 4 extremities Sensation to light touch grossly present throughout Cranial nerves II-XII grossly intact No focal sensory deficits Lymphatics: no palpable cervical or supraclavicular , or inguinal lymph nodes Results CBC & Chem 7: 12/17/20 23:23 12/17/20 23:23 Labs: Abnormal Lab Results - Last 24 Hours (Table) 12/17/20 12/17/20 12/17/20 Range/Units 23:23 23:23 23:23 WBC 13.0 H (3.8-10.6) k/uL Neutrophils # 9.4 H (1.3-7.7) k/uL APTT 21.9 L (22.0-30.0) sec Sodium 134 L (137-145) mmol/L Carbon Dioxide 17 L (22-30) mmol/L BUN 23 H (9-20) mg/dL Glucose 272 H (74-99) mg/dL POC Glucose (mg/dL) (75-99) mg/dL Troponin I (0.000-0.034) ng/mL 12/17/20 12/18/20 12/18/20 Range/Units 23:23 02:06 05:56 WBC (3.8-10.6) k/uL Neutrophils # (1.3-7.7) k/uL APTT (22.0-30.0) sec Sodium (137-145) mmol/L Carbon Dioxide (22-30) mmol/L BUN (9-20) mg/dL Glucose (74-99) mg/dL POC Glucose (mg/dL) 176 H (75-99) mg/dL Troponin I 0.043 H* 0.102 H* (0.000-0.034) ng/mL Thrombosis Risk Factor Assmnt - Choose All That Apply Each Factor Represents 1 point: Age 41-60 years, Obesity (BMI >25) Thrombosis Risk Factor Assessment Total Risk Factor Score: 2 Thrombosis Risk Factor Assessment Level: Low Risk Assessment and Plan Assessment: new onset afib with RVR on cardizem drip heparin drip monitor vital signs cardiac monitoring echocardiogram cardiology consult TSH unremarkable currently converted to NSR elevated trops , possibly type II ischemia secondary to demand ischemia from above, rule out ACS cardiology consult trend trops denies chest pain at this time continue cardiac meds recent left heart cath september 2020 with stent to LtCx chronic conditions DM , insulin sliding scale CAD s/p stents , resume cardiac meds, plavix and ASA, STATIN full code anticipated length of stay > 2 midnights anticipated discharge home
[2020-12-18] MEDS ORDERED: ALPRAZolam 0.25 MG TAB PO PRN (07:17)
[2020-12-18] MEDS ORDERED: ALPRAZolam 0.5 MG TAB PO PRN (07:17)
[2020-12-18] MEDS ORDERED: ATORVASTATIN 80 MG TAB PO STA (07:17)
[2020-12-18] MEDS ORDERED: ASPIRIN 325 MG TAB PO STA (07:17)
[2020-12-18] MEDS ORDERED: LIDOCAINE 1% INJ 10MG/ML (20 ML MDV) ONE (07:28)
[2020-12-18] MEDS ORDERED: HEPARIN SODIUM 1,000 UN/ML (10ML VL) ONE (07:29)
[2020-12-18] MEDS ORDERED: VERAPAMIL 2.5 MG/ML 2 ML AMP ONE (07:29)
[2020-12-18] MEDS ORDERED: fentaNYL (PF) 50 MCG/ML 2 ML AMP ONE (08:04)
[2020-12-18] MEDS ORDERED: fentaNYL (PF) 50 MCG/ML 2 ML AMP IV ONE (08:10)
[2020-12-18] MEDS: DILTIAZEM 125 MG in SODIUM CHLORIDE 0.9% 100 ML IV SCH (08:11)
[2020-12-18] MEDS ORDERED: LIDOCAINE 1% INJ 10MG/ML (20 ML MDV) SQ ONE (08:24)
[2020-12-18] MEDS ORDERED: VERAPAMIL SYRINGE (5 MG/10 ML) INTRAARTER ONE (08:31)
[2020-12-18] MEDS ORDERED: NITROGLYCERIN 1000MCG/10ML SYRINGE INTRACORON ONE (08:50)
[2020-12-18] MEDS ORDERED: ADENOSINE 180 MG in SODIUM CHLORIDE 0.9% 30 ML IVP ONE (08:53)
[2020-12-18] MEDS ORDERED: IOPAMIDOL-370 125ML BTL INJ ONE (08:58)
[2020-12-18] MEDS ORDERED: ISOSORBIDE MONONITRATE ER 30 MG TAB.ER.24H PO SCH (09:00)
[2020-12-18] MEDS ORDERED: CLOPIDOGREL 75 MG TAB PO SCH (09:00)
[2020-12-18] MEDS ORDERED: metFORMIN 500 MG TAB PO SCH (09:00)
[2020-12-18] MEDS ORDERED: ASPIRIN 81 MG PO SCH (09:00)
[2020-12-18] MEDS ORDERED: RX INFO: IV CONTRAST WAS GIVEN 1 EACH MISC MISCELLANE PRN (09:23)
[2020-12-18] MEDS ORDERED: SODIUM CHLORIDE 0.9% 1,000 ML IV SCH (09:30)
--- NOTE | 2020-12-18 11:03 | ECHOF ---
Referral Reason:new afib MEASUREMENTS -------- HEIGHT: 180.3 cm WEIGHT: 122.5 kg BP: IVSd: 0.9 cm (0.6 - 1.1) LVIDd: 4.8 cm (3.9 - 5.3) LVPWd: 1.1 cm (0.6 - 1.1) IVSs: 1.7 cm LVIDs: 2.6 cm LVPWs: 1.6 cm LAESV Index (A-L): 14.25 ml/m Ao Diam: 3.2 cm (2.0 - 3.7) AV Cusp: 2.1 cm (1.5 - 2.6) LA Diam: 3.5 cm (2.7 - 3.8) MV EXCURSION: 18.048 mm (> 18.000) MV EF SLOPE: 89 mm/s (70 - 150) EPSS: 1.1 cm MV E Maximo: 0.93 m/s MV DecT: 182 ms MV A Maximo: 0.81 m/s MV E/A Ratio: 1.16 RAP: 5.00 mmHg RVSP: 11.86 mmHg FINDINGS -------- This was a technically good study. The left ventricular size is normal. Left ventricular wall thickness is normal. Overall left vent ricular systolic function is low-normal with, an EF between 50 - 55 %. Normal LAP Grade 1 Diastolic Dysfunction. Basal inferior LV wall motion is hypokinetic. The right ventricle is normal in size. The left atrial size is normal. Normal LA size by volume 22+/-6 ml/m2. The right atrial size is normal. The aortic valve was not well visualized. The mitral valve is normal. There is trace mitral regurgitation. The tricuspid valve appears structurally normal. Trace tricuspid regurgitation present. Right andre tricular systolic pressure is normal at < 35 mmHg. There is no pulmonic regurgitation present. The aortic root size is normal. IVC Not well visulized. There is no pericardial effusion. CONCLUSIONS -------- 1. The left ventricular size is normal. 2. Left ventricular wall thickness is normal. 3. Overall left ventricular systolic function is low-normal with, an EF between 50 - 55 %. 4. Normal LAP Grade 1 Diastolic Dysfunction. 5. Basal inferior LV wall motion is hypokinetic. 6. There is trace mitral regurgitation. 7. Trace tricuspid regurgitation present. 8. There is no pericardial effusion. PEDIATRIC DENTIST: France Dneise RDCS
--- NOTE | 2020-12-18 11:37 | CONS ---
CONSULTATION Mr. Mulligan is a 59-year-old male who presented to the emergency room with symptoms of palpitations. Patient has a known history of coronary artery disease. He presented initially with symptoms of chest heaviness, exertional in pattern, radiating to the left arm. He subsequently underwent a cardiac catheterization that was performed on October 02, and at that time he was found to have critical stenosis involving the mid RCA and the proximal RCA with significant disease in the first diagonal branch and moderately significant disease in the mid LAD. He underwent stenting of the RCA and was brought back on October 23 and at that time underwent IFR of the LAD that was significant, so underwent stenting of the LAD and the diagonal branch. He has done reasonably well, with resolution of his chest discomfort, but presented early this morning with symptoms of palpitations and was noted to be in atrial fibrillation, which is new to him. He is back in sinus mechanism. The patient has no prior documented history of atrial fibrillation. He did not have any anginal symptoms. He denies any change in his breathing. He has chronic dyspnea on exertion. He has no history of PND or orthopnea. No significant peripheral edema. His left ventricular systolic function has been preserved in the past. Unfortunately he continues to smoke. His coronary risk factors, in addition to that, are positive for diabetes, hypertension and hyperlipidemia. His medications at the time of admission included metformin 500 mg twice a day, lisinopril 10 mg twice a day, hydrochlorothiazide 25 mg daily, Plavix 75 mg daily, citalopram, Lipitor 80 mg daily and albuterol. REVIEW OF SYSTEMS: RESPIRATORY SYSTEM: He has occasional cough, history of chronic tobacco use and chronic dyspnea on exertion. GI SYSTEM: No recent GI bleeding. No peptic ulcer disease. SYSTEM: No dysuria or hematuria. NERVOUS SYSTEM: History of seizure. Patient has a prior history of brain mass removal in the past that has affected his mentation now. PHYSICAL EXAMINATION: He is a 59-year-old male, alert, in no apparent distress. Blood pressure 120/90 with a heart rate of 70. HEAD: Normocephalic. EYES: Sclerae anicteric. NECK: Good carotid upstroke. No bruit. No jugular venous distention. LUNGS: Clear with decreased exchange. No wheezes. HEART: Regular rate and rhythm. S1, S2. No S3. No rub. With a systolic ejection murmur heard at the base. No diastolic murmur. ABDOMEN: Soft, nontender, obese. EXTREMITIES: No edema. LAB DATA: Troponin 0.04, 0.10, 0.235. TSH 1.8. BUN and creatinine of 23 and 0.9. Potassium 4.3, hemoglobin of 17.1, white blood cells of 13,000. EKG on presentation revealed atrial fibrillation with rapid ventricular response and nonspecific ST-T wave changes. Subsequently he is in sinus mechanism with no acute ST- segment changes. Chest x-ray shows no acute infiltrate. IMPRESSION: 1. Paroxysmal atrial fibrillation, back in sinus mechanism. 2. Troponin elevation; could be related to demand/supply mismatch, although the possibility of an ischemic event cannot be totally excluded in view of his known history of coronary artery disease. 3. Status post multivessel stenting done in September of this year. 4. Chronic tobacco use. 5. Diabetes. 6. Hypertension. 7. Hyperlipidemia. 8. History of seizure. RECOMMENDATIONS: From the cardiac standpoint, I would recommend proceeding with coronary angiography to assess his coronary anatomy. If there is no evidence of progression of disease, then the patient will be started on oral anticoagulation. Continue with the rest of his medical regimen. I discussed with him again the importance of smoking cessation. Depending on his progress, further recommendations will be made. Thank you for this consult. Will follow with you. GIORGI / ABELN: [id number] / MITZY
[2020-12-18] MEDS: CITALOPRAM HYDROBROMIDE 20 MG TAB PO SCH (11:44)
[2020-12-18] MEDS: CLOPIDOGREL 75 MG TAB PO SCH (11:44)
[2020-12-18] MEDS: lisinopriL 10 MG TAB PO SCH ×2 (11:45→21:45)
[2020-12-18 12:01] LABS: Glucose,Whole Blood 155 mg/dL (75-99)
[2020-12-18 12:25] LABS: Glucose,Whole Blood 161 mg/dL (75-99)
--- NOTE | 2020-12-18 13:09 | CC ---
CARDIAC CATHETERIZATION REPORT Mr. Mulligan is a 59-year-old male with known history of coronary artery disease, history of chronic tobacco use, status post stenting of the LAD and the right coronary artery in September of this year, who presented with symptoms of palpitations, dyspnea, was noted to be in atrial fibrillation and subsequently converted back to sinus mechanism. He had mild troponin elevation. In view of that, recommendation was made regarding cardiac catheterization. The procedure as well as its risks and complications were discussed with the patient, who was in full understanding and agreement. PROCEDURE DESCRIPTION: Patient was brought to the laborer tree tapping in a fasting, semi-sedated state after receiving fentanyl and Benadryl and achieving a moderate conscious sedated state. Using Xylocaine anesthesia and Seldinger technique, a 6-Russian sheath was introduced in the right radial artery. Selective right and left coronary angiography was performed using 5- Russian, 3.5 bend, left Christa and 4 bend right Christa catheters. Images were taken of the coronary arteries, including hemiaxial views. Following that, a 5-Russian tight pigtail catheter was introduced in the left ventricle and left ventricular end- diastolic pressure was calculated. Following that, a 6-Russian FL3.5 guiding catheter was introduced into the system. After cannulating the left main, a Verrata Plus Doppler flow wire was introduced into the left circumflex and IFR and FFR were measured. Following that, the wire and the guiding catheter were removed. Sheath was removed. Hemostasis was obtained with deployment of a TR band. There was no immediate complication. Patient was returned to his room in stable condition. Of note, the patient received 5000 units of intravenous heparin as well as intra-arterial verapamil. He received adenosine infusion per protocol. FINDINGS: LEFT MAIN: This is a short-sized vessel bifurcating into left circumflex and left anterior descending artery. Left main coronary artery has no evidence of high- grade stenosis. LEFT ANTERIOR DESCENDING ARTERY: This is a large-sized vessel reaching to the apex. It tapers down in the distal third, giving rise to a large proximal diagonal branch. The diagonal branch stented segment is patent. The LAD stented segment in the proximal and mid area is patent with no evidence of in-stent restenosis. LEFT CIRCUMFLEX: This is a nondominant large-sized vessel giving rise to two obtuse marginal branches. The first one is proximal and small in caliber. The second obtuse marginal branch is larger in caliber. The proximal left circumflex has a 20% to 30% plaque. The obtuse marginal branch 2 has a 50% plaque proximally. The rest of the vessel has no high-grade stenosis. The first obtuse marginal branch has diffuse mild intimal disease, but it is small in caliber. RIGHT CORONARY ARTERY: This is a large dominant vessel bifurcating into PDA and posterolateral segment and branches. The stented segments in the mid and distal RCA are patent. There is mild intimal plaque of 20% to 30% without any evidence of high- grade stenosis. LEFT VENTRICULOGRAM: Left ventriculogram was not performed. HEMODYNAMICS: There was no gradient across the aortic valve. The left ventricular end- diastolic pressure was 16 to 20 mmHg. IFR and FFR: The IFR in the left circumflex obtuse marginal branch was 91% and the FFR was 90% after the adenosine infusion. CONCLUSION: 1. Patent stents to the LAD, diagonal branch and the RCA. 2. Moderate disease in the left circumflex, second obtuse marginal branch, not hemodynamically significant, with a normal FFR and IFR. RECOMMENDATIONS: In view of findings and anatomy, I recommend continued medical therapy with the aggressive coronary risk modifications that have been initiated. The patient will be evaluated for anticoagulation in view of the episode of paroxysmal atrial fibrillation. Those findings and recommendations were discussed with the patient and his family, and they are in full understanding and agreement. Duration of sedation was 33 minutes. GIORGI / ANGLE: [id number] / MTDD
[2020-12-18] MEDS: SODIUM CHLORIDE 0.9% 1,000 ML in EMPTY BAG 1 BAG IV SCH ×2 (14:33→14:34)
[2020-12-18 16:46] LABS: Glucose,Whole Blood 262 mg/dL (75-99)
[2020-12-18] MEDS ORDERED: DILTIAZEM 125 MG in SODIUM CHLORIDE 0.9% 100 ML IV SCH (17:45)
[2020-12-18 19:59] LABS: Glucose,Whole Blood 99 mg/dL (75-99)
[2020-12-18] MEDS ORDERED: ATORVASTATIN 80 MG TAB PO SCH (21:00)
[2020-12-19 00:18] VITALS: RESP 18
[2020-12-19] MEDS: SODIUM CHLORIDE 0.9% 1,000 ML in EMPTY BAG 1 BAG IV SCH ×2 (01:30→08:19)
[2020-12-19 06:04] LABS: Glucose,Whole Blood 133 mg/dL (75-99)
[2020-12-19] MEDS: INSULIN ASPART (NovoLOG) 100 UNIT/ML VIAL SQ SCH (06:05)
[2020-12-19 06:53] LABS: Basophils # (A) 0.1 k/uL (0-0.2); Basophils % (A) 1 %; Eosinophils # (A) 0.1 k/uL (0-0.7); Eosinophils % (A) 2 %; HCT 45.2 % (39.0-53.0); Lymphocytes # (A) 3.1 k/uL (1.0-4.8); Lymphocytes % (A) 35 %; MCH 31.1 pg (25.0-35.0); MCHC 33.2 g/dL (31.0-37.0); MCV 93.8 fL (80.0-100.0); Mean Platelet Volume 7.7; Monocytes # (A) 0.7 k/uL (0-1.0); Monocytes % (A) 8 %; Neutrophils # (A) 4.6 k/uL (1.3-7.7); Neutrophils % (A) 52 %; Platelet Count 245 k/uL (150-450); RBC 4.81 m/uL (4.30-5.90); RDW 12.7 % (11.5-15.5); WBC 8.8 k/uL (3.8-10.6)
[2020-12-19] MEDS ORDERED: HEPARIN SODIUM,PORCINE 10,000 UNIT in SODIUM CHLORIDE 0.9% 1,000 ML IRRIGATION PRN (07:00)
[2020-12-19] MEDS ORDERED: HEPARIN SODIUM,PORCINE 2,500 UNIT in SODIUM CHLORIDE 0.9% 250 ML IRRIGATION PRN (07:00)
[2020-12-19 07:10] LABS: African American GFR (CKD) >90 (>60 ml/min/1.73 sqM); Anion Gap 7 mmol/L; Blood Urea Nitrogen 19 mg/dL (9-20); Calcium 9.1 mg/dL (8.4-10.2); Carbon Dioxide 25 mmol/L (22-30); Chloride 106 mmol/L (98-107); Glucose 149 mg/dL (74-99); Non-African American GFR(CKD) >90 (>60 ml/min/1.73 sqM); Sodium 138 mmol/L (137-145)
[2020-12-19 07:27] LABS: Prothrombin Time 10.6 sec (9.0-12.0)
[2020-12-19 08:18] VITALS: BP 164/80; PULSE 75; TEMP 97.9
[2020-12-19] MEDS: lisinopriL 10 MG TAB PO SCH (08:19)
[2020-12-19] MEDS: CLOPIDOGREL 75 MG TAB PO SCH (08:19)
[2020-12-19] MEDS: CITALOPRAM HYDROBROMIDE 20 MG TAB PO SCH (08:19)
[2020-12-19] MEDS ORDERED: APIXABAN 5 MG TAB PO SCH (09:00)
[2020-12-19] MEDS ORDERED: METOPROLOL TARTRATE 25 MG TAB PO SCH (09:00)
--- NOTE | 2020-12-19 09:52 | P.DS ---
Providers Date of admission: 12/18/20 01:43 Expected date of discharge: 12/19/20 Attending physician: Kayla Murry MD Consults: 12/18/20 01:43 Consult Physician Routine Consulting Provider: Rekha Muir Consult Reason/Comments: New-onset atrial fibrillation. Do you want consulting provider notified?: Yes Primary care physician: Tyree Ball [facility] Course: This is a 59-year-old male with past medical history significant for coronary artery disease with prior stent placement that presented to the emergency room with chest heaviness and exertional dyspnea. Patient was evaluated in the ER and admitted to the hospital. He was noted to be in atrial fibrillation with rapid ventricular response. He has a history of atrial fibrillation in the past but he is not on any anticoagulation at home. Patient was seen and evaluated by cardiology. He underwent echocardiogram showing EF of 50-55% with no significant valvular abnormalities. Patient underwent left heart catheterization showing patent stent to the LAD and diagonal branch and RCA. No intervention was done. The recommendation was to optimize medical management. Patient was started on anticoagulation with Eliquis. This would be in addition to his dual antiplatelet therapy secondary to recent stenting in September. Patient was cleared by cardiology for discharge home. He will be discharged in stable condition. For further details about this hospitalization please refer to the electronic chart. Patient was seen and evaluated by me on the day of discharge. Physical exam: General: The patient is awake and alert, in no distress Eye: there is normal conjunctiva bilaterally. Neck: The neck is supple, there is no JVD. Cardiovascular: Normal S1-S2, no S3-S4, no murmurs. Respiratory: Lungs clear to auscultation bilaterally Gastrointestinal: Abdomen is soft, nontender Musculoskeletal: There is no pedal edema. Neurological:. Speech is normal. Skin: Skin is warm and dry Plan - Discharge Summary Discharge Rx Participant: No New Discharge Prescriptions: New Apixaban [Eliquis] 5 mg PO BID 30 Days #60 tab Metoprolol Tartrate 25 mg PO BID #180 tab Continue Diphenoxylate HCl/Atropine [Lomotil 2.5-0.025 mg Tablet] 1 tab PO 5XD PRN PRN Reason: loose stools. Nitroglycerin Sl Tabs [Nitrostat] 0.4 mg SUBLINGUAL Q5M PRN PRN Reason: Chest Pain diazePAM [Diazepam] 10 mg PO Q8H PRN PRN Reason: Seizures Atorvastatin [Lipitor] 80 mg PO HS #90 tab Clopidogrel [Plavix] 75 mg PO DAILY #90 tab lisinopriL 10 mg PO BID #180 tab Albuterol Sulfate [Proair Hfa] 2 puff INHALATION RT-Q4H PRN PRN Reason: Shortness Of Breath Citalopram Hydrobromide [Citalopram HBr] 20 mg PO DAILY metFORMIN HCL 500 mg PO BID Fluticasone Nasal [place] [Flonase Nasal [place]] 1 spray NASAL DAILY PRN PRN Reason: Allergy Symptoms Discontinued hydroCHLOROthiazide [Hydrodiuril] 25 mg PO DAILY Discharge Medication List Citalopram Hydrobromide [Citalopram HBr] 20 mg PO DAILY 09/27/20 [History] Diphenoxylate HCl/Atropine [Lomotil 2.5-0.025 mg Tablet] 1 tab PO 5XD PRN 09/27/20 [History] Fluticasone Nasal [place] [Flonase Nasal [place]] 1 spray NASAL DAILY PRN 09/27/20 [History] Nitroglycerin Sl Tabs [Nitrostat] 0.4 mg SUBLINGUAL Q5M PRN 09/27/20 [History] diazePAM [Diazepam] 10 mg PO Q8H PRN 09/27/20 [History] metFORMIN HCL 500 mg PO BID 09/27/20 [History] Atorvastatin [Lipitor] 80 mg PO HS #90 tab 10/03/20 [Rx] Clopidogrel [Plavix] 75 mg PO DAILY #90 tab 10/03/20 [Rx] lisinopriL 10 mg PO BID #180 tab 10/03/20 [Rx] Albuterol Sulfate [Proair Hfa] 2 puff INHALATION RT-Q4H PRN 12/18/20 [History] Apixaban [Eliquis] 5 mg PO BID 30 Days #60 tab 12/18/20 [Rx] Metoprolol Tartrate 25 mg PO BID #180 tab 12/19/20 [Rx] Follow up Appointment(s)/Referral(s): Rekha Muir MD [STAFF PHYSICIAN] - 12/26/20 3:00 pm Tyree Patel DO [Primary Care Provider] - 1-2 days Patient Instructions/Handouts: *Surgery [facility] - After Heart Catheterization - [employer] Instructions, A-fib (Atrial Fibrillation) (DC) Discharge Disposition: HOME SELF-CARE
--- NOTE | 2020-12-19 11:17 | PN ---
PROGRESS NOTE Mr. Mulligan is a 59-year-old male with known history of coronary artery disease, multivessel angioplasty and stenting, who presented with symptoms of palpitations, dyspnea and mild dizziness, was noted to be in atrial fibrillation and subsequently converted back to sinus mechanism. He had mild troponin elevation. He underwent cardiac catheterization that revealed no evidence of progression of disease. He had moderate disease in the left circumflex with a normal IFR and FFR. He continues to be in sinus mechanism. He is feeling well this morning. He is denying any chest pain. He denies any dizziness or palpitations. He denies any nausea. He continues to be on aspirin once a day, Lipitor 80 mg daily, Plavix 75 mg daily, insulin, Zestril 10 mg twice a day. PHYSICAL EXAMINATION: Blood pressure is running in the 120s with a heart rate in the 60s. LUNGS: Clear. HEART: Regular rate and rhythm. S1, S2. No S3. No rub. ABDOMEN: Soft, nontender. Right radial pulse intact. EXTREMITIES: No edema. LAB DATA: BUN and creatinine are 19 and 0.86. Potassium 4.0, hemoglobin of 15. IMPRESSION: 1. Paroxysmal atrial fibrillation, back in sinus mechanism. 2. History of coronary artery disease with no significant progression of disease. 3. Mild troponin elevation, most likely related to demand/supply mismatch related to the atrial fibrillation. 4. History of chronic tobacco use. 5. Hyperlipidemia. 6. Diabetes mellitus. 7. Prior history of brain tumor. RECOMMENDATIONS: From the cardiac standpoint, patient will be discharged home today. I will stop his aspirin. He will continue on Plavix and Eliquis. I discussed with him the importance of smoking cessation. Depending on his progress, further recommendations will be made. MMODL / IJN: [id number] /
[2020-12-19 18:59] LABS: Chol/HDL Ratio 3.51 Ratio; LDL Cholesterol,Calculated 48.4 mg/dL (0.0-131.0)
== END 2020-12-19 10:37 | disposition home or self-care (01) ==
LOC: EC 22:56 → 3SCARD 12-18 01:43 → INTOOBSV 12-18 01:43 → 3SCARD 12-18 02:06 → UNDODISIN 12-19 10:37
PROVIDERS: ADMIT Internal Medicine; ATTEND Internal Medicine
PROC: 4A033BC Measurement of Arterial Pressure, Coronary, Percutaneous Approach (ICD-10-PCS; 2020-12-18)
PROC: 4A023N7 Measurement of Cardiac Sampling and Pressure, Left Heart, Percutaneous Approach (ICD-10-PCS; principal; 2020-12-18 08:25)
PROC: B2111ZZ Fluoroscopy of Multiple Coronary Arteries using Low Osmolar Contrast (ICD-10-PCS; 2020-12-18 08:25)
DX: I48.0 Paroxysmal atrial fibrillation (principal); R79.89 Other specified abnormal findings of blood chemistry; I25.10 Atherosclerotic heart disease of native coronary artery without angina pectoris; I08.1 Rheumatic disorders of both mitral and tricuspid valves; J44.9 Chronic obstructive pulmonary disease, unspecified; I10 Essential (primary) hypertension; E11.9 Type 2 diabetes mellitus without complications; E78.5 Hyperlipidemia, unspecified; G40.909 Epilepsy, unspecified, not intractable, without status epilepticus; F17.210 Nicotine dependence, cigarettes, uncomplicated; E66.9 Obesity, unspecified; Z68.38 Body mass index [BMI] 38.0-38.9, adult; Z20.822 Contact with and (suspected) exposure to COVID-19; Z79.82 Long term (current) use of aspirin; Z79.02 Long term (current) use of antithrombotics/antiplatelets; Z79.84 Long term (current) use of oral hypoglycemic drugs; Z79.899 Other long term (current) drug therapy; Z88.8 Allergy status to other drugs, medicaments and biological substances; Z86.011 Personal history of benign neoplasm of the brain; Z95.5 Presence of coronary angioplasty implant and graft; Z71.6 Tobacco abuse counseling; Z80.9 Family history of malignant neoplasm, unspecified; Z82.49 Family history of ischemic heart disease and other diseases of the circulatory system
CPT/HCPCS: 96376 ×2; 96365; 96366; 96367; 99285; 36415; 93005; 93306; 93571; 93458; 80061; 80053; 80048; 83735; 84443; 84484 ×2; 85025 ×2; 85610 ×2; 85730; 83036; 87635; 71045; G0378 ×2; C1887; C1894; C1769; J2001; J3010; J1644 ×3; J0153; Q9967; 96374

== ENCOUNTER → 2021-02-01 | Outpatient (CLI) | payer OTHER ==
[2021-02-01 23:12] LABS: Basophils # (A) 0.09 X 10*3/uL (0.00-0.10); Eosinophils # (A) 0.14 X 10*3/uL (0.04-0.35); Eosinophils % (A) 1.6 %; HCT 45.6 % (39.6-50.0); HGB 15.1 g/dL (13.0-17.0); Lymphocytes % (A) 37.5 %; MCH 31.2 pg (27.0-32.0); MCHC 33.1 g/dL (32.0-37.0); MCV 94.2 fL (80.0-97.0); Mean Platelet Volume 10.4 fL (9.5-12.2); Monocytes # (A) 0.87 X 10*3/uL (0.20-1.00); Monocytes % (A) 9.9 %; Neutrophils # (A) 4.34 X 10*3/uL (1.80-7.70); Neutrophils % (A) 49.3 %; Platelet Count 265 X 10*3/uL (140-440); RBC 4.84 X 10*6/uL (4.40-5.60); RDW 13.1 % (11.5-14.5)
[2021-02-02 01:47] LABS: ALT 41 U/L (10-49); AST 26 U/L (14-35); Albumin 4.2 g/dL (3.8-4.9); Albumin/Globulin Ratio 1.72 (1.60-3.17); Alkaline Phosphatase 81 U/L (41-126); BUN/Creat Ratio 14.34 Ratio (12.00-20.00); Blood Urea Nitrogen 16.2 mg/dL (9.0-27.0); Carbon Dioxide 19.3 mmol/L (20.0-27.5); Chloride 103 mmol/L (96-109); Chol/HDL Ratio 4.16 Ratio; Globulin 2.4 g/dL (1.6-3.3); Glucose 181 mg/dL (70-110); LDL Cholesterol,Calculated 41.8 mg/dL (0.0-131.0); Non-African American GFR(CKD) 70.8 (60.0-200.0); Potassium 4.2 mmol/L (3.5-5.5); Sodium 138 mmol/L (135-145); Total Protein 6.6 g/dL (6.2-8.2)
== END | disposition home or self-care (01) ==
LOC: LAB 15:00
PROVIDERS: ATTEND Family Medicine
DX: Z00.00 Encounter for general adult medical examination without abnormal findings (principal); E78.2 Mixed hyperlipidemia
CPT/HCPCS: 36415; 80053; 80061; 82306; 83036; 84153; 84443; 85025

== ENCOUNTER → 2021-08-06 | Outpatient (CLI) | payer OTHER ==
[2021-08-06 14:38] LABS: ALT 39 U/L (10-49); AST 26 U/L (14-35); African American GFR (CKD) 87.6 (60.0-200.0); Albumin 4.5 g/dL (3.8-4.9); Alkaline Phosphatase 72 U/L (41-126); BUN/Creat Ratio 13.18 Ratio (12.00-20.00); Blood Urea Nitrogen 14.1 mg/dL (9.0-27.0); Calcium 9.7 mg/dL (8.7-10.3); Carbon Dioxide 26.7 mmol/L (20.0-27.5); Chloride 102 mmol/L (96-109); Chol/HDL Ratio 4.09 Ratio; Globulin 2.5 g/dL (1.6-3.3); Glucose 123 mg/dL (70-110); LDL Cholesterol,Calculated 72.6 mg/dL (0.0-131.0); Non-African American GFR(CKD) 75.6 (60.0-200.0); Potassium 4.3 mmol/L (3.5-5.5); Sodium 140 mmol/L (135-145); Total Protein 7.1 g/dL (6.2-8.2)
== END | disposition home or self-care (01) ==
LOC: LABWHC1 09:15
PROVIDERS: ATTEND Nurse Practitioner Adult Health
DX: E78.2 Mixed hyperlipidemia (principal)
CPT/HCPCS: 36415; 80053; 80061

== ENCOUNTER → 2022-02-18 | Outpatient (CLI) | payer OTHER ==
[2022-02-18 18:23] LABS: ALT 27 U/L (10-49); AST 19 U/L (14-35); African American GFR (CKD) 107.2 (60.0-200.0); Albumin 4.4 g/dL (3.8-4.9); Albumin/Globulin Ratio 1.83 (1.60-3.17); Alkaline Phosphatase 79 U/L (41-126); BUN/Creat Ratio 15.56 Ratio (12.00-20.00); Calcium 9.3 mg/dL (8.7-10.3); Carbon Dioxide 27.5 mmol/L (20.0-27.5); Chloride 103 mmol/L (96-109); Chol/HDL Ratio 3.79 Ratio; Globulin 2.4 g/dL (1.6-3.3); Glucose 149 mg/dL (70-110); LDL Cholesterol,Calculated 61.9 mg/dL (0.0-131.0); Non-African American GFR(CKD) 92.5 (60.0-200.0); Potassium 4.6 mmol/L (3.5-5.5); Sodium 141 mmol/L (135-145); Total Protein 6.8 g/dL (6.2-8.2)
== END | disposition home or self-care (01) ==
LOC: LABWHC1 12:54
PROVIDERS: ATTEND Internal Medicine Interventional Cardiology
DX: E78.2 Mixed hyperlipidemia (principal)
CPT/HCPCS: 36415; 80053; 80061

== ENCOUNTER → 2022-07-29 | Outpatient (CLI) | payer OTHER ==
--- NOTE | 2022-07-29 13:47 | XR ---
EXAMINATION TYPE: XR lumbosacral spine min 4V DATE OF EXAM: 07/29/2022 CLINICAL HISTORY: pain COMPARISON: NONE TECHNIQUE: Frontal, lateral, and oblique images of the lumbar spine are obtained. FINDINGS: There are 5 lumbar type vertebral bodies identified. The lumbar spine shows satisfactory alignment without evidence of acute fracture or dislocation. Vertebral body heights are within normal limits. Mild degenerative disc space narrowing and spondylosis. Facet joint arthropathy. The overl gus soft tissue appears unremarkable. IMPRESSION: No acute fracture or dislocation is seen in the lumbar spine.ICD 10 NO FRACTURE, INITIAL EVALUATION
== END | disposition home or self-care (01) ==
LOC: RADXRMAIN 12:25
PROVIDERS: ATTEND Family Medicine
DX: M54.50 Low back pain, unspecified (principal)
CPT/HCPCS: 72110

== ENCOUNTER → 2022-08-29 | Outpatient (CLI) | payer OTHER ==
[2022-08-29 16:12] LABS: ALT 34 U/L (10-49); AST 23 U/L (14-35); Chol/HDL Ratio 3.66 Ratio; LDL Cholesterol,Calculated 49.9 mg/dL (0.0-131.0)
== END | disposition home or self-care (01) ==
LOC: LABWHC1 10:51
PROVIDERS: ATTEND Nurse Practitioner Adult Health
DX: E78.2 Mixed hyperlipidemia (principal)
CPT/HCPCS: 36415; 80061; 84450; 84460

== ENCOUNTER → 2023-03-26 | Outpatient (CLI) | payer OTHER ==
[2023-03-26 15:28] LABS: ALT 28 U/L (10-49); AST 21 U/L (14-35); Albumin 4.3 g/dL (3.8-4.9); Albumin/Globulin Ratio 1.59 Ratio (1.60-3.17); Alkaline Phosphatase 80 U/L (41-126); Calcium 9.7 mg/dL (8.7-10.3); Carbon Dioxide 24.4 mmol/L (21.6-31.8); Chloride 99 mmol/L (96-109); Chol/HDL Ratio 3.76 Ratio; Globulin 2.7 g/dL (1.6-3.3); Glucose 216 mg/dL (70-110); Potassium 4.2 mmol/L (3.5-5.5); Sodium 136 mmol/L (135-145); Total Bilirubin 0.4 mg/dL (0.3-1.2)
== END | disposition home or self-care (01) ==
LOC: LABWHC1 10:46
PROVIDERS: ATTEND Internal Medicine Interventional Cardiology
DX: E78.2 Mixed hyperlipidemia (principal)
CPT/HCPCS: 36415; 80053; 80061